=== PATIENT | male | born 1985 | race Caucasian/White ===

== ENCOUNTER 2017-03-22 10:44 | Emergency (ER) | payer OTHER ==
[~2017-03-22] VITALS: Ht 172.7 cm; Wt 71.5 kg
[2017-03-22 10:47] VITALS: TEMP 36.8; Ht 172.7 cm; Wt 71.5 kg
--- NOTE | 2017-03-22 12:17 | DIAGNOSTIC IMAGING REPORT ---
RIGHT ANKLE MIN 3 VIEWS ROUTINE CLINICAL HISTORY: Right ankle pain and swelling. COMPARISON: None FINDINGS: Alignment of the right ankle is anatomic. Talar dome is intact. There is no fracture or suspicious lesion. IMPRESSION: Unremarkable right ankle radiographs. Electronically signed by: Nick Gonzalez M.D. 03/22/2017 12:16 PM Dictated Date/Time: 03/22/2017 12:15 PM
--- NOTE | 2017-03-22 12:19 | DIAGNOSTIC IMAGING REPORT ---
RIGHT FOOT MIN 3 VIEWS ROUTINE CLINICAL HISTORY: Right foot and ankle pain and swelling. COMPARISON: None FINDINGS: Tarsometatarsal joints are intact. There is no acute fracture. There is minimal osteophytosis the right first metatarsophalangeal joint. There is no evidence for a stress fracture. IMPRESSION: 1. No acute fracture or dislocation of the right foot. 2. 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 Electronically signed by: Nick Gonzalez M.D. 03/22/2017 12:18 PM Dictated Date/Time: 03/22/2017 12:17 PM
[2017-03-22 12:50] VITALS: BP 134/84; PULSE 97; O2SAT 96
--- NOTE | 2017-03-22 20:39 | EMERGENCY ROOM VISIT NOTE ---
ED Visit Note First contact with patient: 11:00 Chief Complaint: Right foot and ankle pain. History of Present Illness: Mr. Moon is a 31-year-old white male who ambulates into the ED complaining of right medial ankle pain and right plantar foot pain. Patient reports his symptoms started approximately 3-4 days. Since that time his pain has been constant but has waxed and waned in intensity. 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 Currently he is complaining of pain over the anterior aspect of the right medial malleolus along the tendon sheath of the tibialis anterior muscle. He describes this pain as an achy sensation and rates his discomfort 4/10. His pain worsens with palpation and plantar flexion of the ankle. He has not identified any alleviating factors related to the pain. He is taking intermittent ibuprofen without relief of his discomfort. Associated with his pain he reports he is also having pain over the plantar fascia. He describes this as a burning type pain. He rates this discomfort 5/ 10. His pain is nonradiating. His pain worsens with flattening of the arches, ambulation and palpation of the fascia. He has not identified any alleviating factors related to the pain. He is used intermittent ibuprofen without relief of his discomfort. Associated with his ankle and foot pain he feels there is mild swelling in this area. He denies any lower leg pain, heel pain, Achilles tendon pain, lateral ankle pain, ankle/foot weakness/numbness/tingling. Additionally he denies any previous significant injuries or surgeries to the ankle or foot. Review of Systems: As noted above in history of present illness. Past Medical History: Patient denies. Current Medications: Patient denies. Allergies to Medications: Patient denies. Social History: Patient is currently employed; he feels safe in his home environment; he denies tobacco use. Physical Examination: Vital Signs: Date Time Temp Pulse Resp B/P (MAP) Pulse Ox O2 Delivery O2 Flow Rate FiO2 03/22/17 12:50 97 134/84 96 03/22/17 10:47 36.8 101 18 149/89 93 Room Air GENERAL: 31-year-old male in mild distress due to pain, nontoxic-appearing, afebrile and hemodynamically stable. NEUROLOGICAL: Awake, alert and oriented to person, place and time. Answering questions appropriately and following commands. Normal gait. Good hand eye coordination. No focal motor or sensory deficits. RIGHT LOWER LEG: No gross bony deformity. No tenderness throughout the lower leg. There is mild tenderness over the anterior aspect of the medial malleolus predominately over the tendinous structures. I do not appreciate any swelling or erythema in this area but the patient feels like it is swollen in this area. There is no bony deformity or crepitus. No ecchymosis. Full range of motion in plantar flexion and dorsiflexion of the ankle. No ligamentous laxity. There is also moderate tenderness over the plantar fascia without erythema or edema. Once again patient feels this area is swollen but I do not appreciate any swelling. There is no soft tissue injuries or foreign bodies embedded in this area. The area of tenderness is just anterior to the calcaneus and extends to the mid foot. When the arches flattened he has increasing pain. Throughout the rest of the foot the skin was warm and pink and capillary refill is brisk. Able to distinguish light sensations to all dermatomes of the foot. ED Course: Patient is assessed as noted above. Patient's medication list was reviewed. Patient was offered pain medication and refused. Right Ankle X-Rays: Were read by myself and the radiologist showing no acute fractures or dislocations. Right Foot X-Rays: Were read by myself and shows no acute fractures or dislocations. Radiologist notes minimal osteoarthritis in the first metatarsal phalangeal joint. Patient was placed in a postop shoe and on nonweightbearing crutches. Patient was educated about today's findings and instructed on his treatment plan ; he verbalizes understanding and agreement with this plan. Clinical Impression: Right foot plantar fasciitis. Possible tendinitis. Disposition: Patient discharged home in stable condition; prior to departure he was reassessed and subjectively reported that he was pain-free. Plan: Comfort measures were discussed with the patient including rest, ice, ibuprofen , acetaminophen, postop shoe and nonweightbearing crutches. Patient was encouraged to be reevaluated by a commercial litigation associate for definitive care and treatment. Patient was encouraged return ED for worsening/uncontrolled pain, uncontrolled swelling, foot redness, foot weakness/numbness/tingling or any new/concerning symptoms.
== END 2017-03-22 12:50 | disposition home or self-care (01) ==
LOC: C.EDB 10:46 → C.EDD 12:50
DX: M72.2 Plantar fascial fibromatosis (principal)

== ENCOUNTER 2017-04-30 11:24 | Emergency (ER) | payer OTHER ==
[~2017-04-30] VITALS: Ht 172.7 cm; Wt 73.1 kg
[2017-04-30 11:28] VITALS: Ht 172.7 cm; Wt 73.1 kg
--- NOTE | 2017-04-30 12:37 | DIAGNOSTIC IMAGING REPORT ---
RIGHT ANKLE MIN 3 VIEWS ROUTINE CLINICAL HISTORY: Right ankle pain and swelling. COMPARISON: Right ankle radiographs March 22, 2017. FINDINGS: Alignment of the right ankle is anatomic. Talar dome is intact. No fracture or suspicious lesion is present. There is mild ankle soft tissue swelling, greater laterally. IMPRESSION: 1. No osseous abnormality of the right ankle. 2. Right ankle soft tissue swelling. Electronically signed by: Nick Gonzalez M.D. 04/30/2017 12:36 PM Dictated Date/Time: 04/30/2017 12:32 PM
--- NOTE | 2017-04-30 12:40 | DIAGNOSTIC IMAGING REPORT ---
RIGHT FOOT MIN 3 VIEWS ROUTINE HISTORY: 31 years-old Male acute right foot pain and swelling. COMPARISON: Right foot radiographs 03/22/2017, right ankle radiographs of same day TECHNIQUE: 3 views of the right foot. FINDINGS: Minimal degenerative changes are again seen within the first metatarsal metatarsal joint. No acute fracture, dislocation or significant degenerative changes are otherwise seen. Bone mineralization is within normal limits. Soft tissues are unremarkable. No opaque foreign body. IMPRESSION: Mild degenerative changes of the first tarsal metatarsal joint without acute bony abnormality. The above report was generated using voice recognition software. It may contain grammatical, syntax or spelling errors. Electronically signed by: Marquise Coleman M.D. 04/30/2017 12:39 PM Dictated Date/Time: 04/30/2017 12:37 PM
--- NOTE | 2017-04-30 14:16 | DIAGNOSTIC IMAGING REPORT ---
BILATERAL LOWER EXTREMITY VENOUS DOPPLER HISTORY: Acute right foot and ankle swelling the calf cramping COMPARISON STUDY: None. FINDINGS: There is normal compressibility, flow, and augmentation within the right lower extremity deep venous system. Note is made of a centrally cystic structure with minimal internal septations involving the posterior medial knee measuring up to 3.9 cm suggesting Garcia's cyst. Additionally within the posterior medial upper calf proximally there is a complex partially cystic collection without internal vascularity, 3.1 x 0.9 x 1.9 cm. This may be connected to the Garcia's cyst. IMPRESSION: 1. No sonographic evidence of deep venous thrombosis within the right lower extremity. 2. 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 Correlate with clinical exam. Electronically signed by: Marquise Coleman M.D. 04/30/2017 2:14 PM Dictated Date/Time: 04/30/2017 2:11 PM
[2017-04-30] MEDS ORDERED: HYDR-5688 PO (14:43)
[2017-04-30] MEDS ORDERED: PRED20TA2 PO (14:43)
--- NOTE | 2017-04-30 14:55 | Pharmacy Progress Note ---
ED Pharmacist Progress Note Date of Service: Apr 30, 2017. Received call from outpatient pharmacy requesting clarification on prednisone prescription. Written as 3 tabs po daily x4 days, #15 However, #15 would indicate 5 day course Spoke with Elvin Bruno, who confirmed that course is to be 5 days. Provided verbal confirmation to the pharmacy.
[2017-04-30 15:13] VITALS: BP 148/68; PULSE 101; TEMP 36.8; O2SAT 100
--- NOTE | 2017-05-01 06:28 | EMERGENCY ROOM VISIT NOTE ---
ED Visit Note First contact with patient: 11:47 Chief Complaint: My right foot, ankle and calf are hurting. History of Present Illness: Mr. Moon is a 31-year-old white male who ambulates into the ED complaining of right lower leg pain. I did see this patient in mid March for similar symptoms. After x-rays and examination my clinical impression was plantar fasciitis and possible tendinitis. He was encouraged to follow-up with orthopedics and podiatry and has not done so. After his treatment of rest and [id number] medications he had mostly relief of symptoms and he feels these have returned since his increased workload has started. 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 Currently patient is complaining of pain over his right arch and pain and swelling over the lower surface of his foot extending into his ankle. He describes this as an achy sensation that becomes sharp with weightbearing and ambulation. At rest is pain is minimal and reports he rates his discomfort 2/ 10 and with weightbearing and ambulation increases to 10/10. He has been using ibuprofen without relief of his discomfort. Associated with his pain he reports he has noted mild swelling over the top of his foot and ankle which is also associated with some mild erythema and he reports this week he has been having cramping of the gastrocnemius muscle. He denies recent trauma, fevers, chills, other skin eruptions or skin color changes, decreased appetite, nausea, vomiting, chest pain, shortness of breath, palpitations, previous clots, claudication, cramping, recent surgery/inactivity/ extended travel, extremity weakness/numbness/tingling. Review of Systems: As noted above in history of present illness. 8 body systems were reviewed and found to be negative as noted above. Past Medical History: As previously noted. Current Medications: Patient denies. Allergies to Medications: Patient denies. Social History: Patient is currently employed; he lives alone and feels safe in his home environment; he admits to tobacco and alcohol use. Physical Examination: Vital Signs: Date Time Temp Pulse Resp B/P (MAP) Pulse Ox O2 Delivery O2 Flow Rate FiO2 04/30/17 15:13 36.8 101 20 148/68 100 04/30/17 15:12 101 20 148/68 100 Room Air 8/30/17 11:28 36.8 115 20 177/97 100 Room Air GENERAL: 31-year-old male in mild distress due to symptoms, nontoxic-appearing, afebrile and hemodynamically stable. NEUROLOGICAL: Awake, alert and oriented to person, place and time. Answering questions appropriately and following commands. Limped gait. Good hand eye coordination. No focal motor sensory deficits. SKIN: Warm, dry and pink. All her surface of the patient's ankle is mildly erythematous but not hot to the touch. The skin does not appear cellulitic and no lymphangitis HEENT: Atraumatic and normocephalic. Sclera white and conjunctiva pink. Airway patent. Speech normal. No lymphadenopathy. Trachea midline. No jugular venous distention. THORAX: Lungs sounds are clear to auscultation and equal bilaterally with symmetrical chest wall. No wheezing, rales or rhonchi. No crepitus, tenderness , subcutaneous air or deformities noted. HEART: Tachycardic rate and rhythm. No gallops, rubs or murmurs are appreciated. ABDOMEN: Flat, soft and nontender. Positive bowel sounds in all quadrants. No guarding, rigidity or organomegaly. EXTREMITIES: Moves all extremities well on command and with purpose. All distal neurovascular statuses are intact and equal bilaterally. RIGHT LOWER EXTREMITY: No gross bony deformity. No tenderness in the hip, thigh or knee. Mild tenderness over the proximal gastrocnemius muscle with slight fullness but no cords. Mild tenderness and erythema associated with swelling around the lateral medial ankle without bony deformity or crepitus. No laxity on testing. Full range of motion in plantar flexion, dorsiflexion, inversion and eversion. There is also mild swelling and erythema over the volar surface of the foot but not the plantar surface. Do not appreciate any bony deformity or crepitus. I was not able to elicit any tenderness over the volar aspect of the foot. On the plantar surface of the foot patient has tenderness in his arch specifically the medial longitudinal arch. There is no erythema or edema on the bottom of the foot. There is no bony crepitus or swelling. Throughout the foot the skin was warm and pink and capillary refill is brisk. He is able to distinguish light sensations through all dermatomes. ED Course: Patient is assessed as noted above. Patient's medication list was reviewed. Right Ankle X-Rays: Were read by myself and the radiologist and shows no fractures or dislocations. Mild ankle swelling was noted and radiologist reported it was greater on the lateral aspect of the foot. Right Foot X-Rays: Were read by myself and the radiologist showing no acute fractures or dislocations. Once again first MTP joint showed minimal degenerative changes consistent with his previous x-rays. 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 On reevaluation of the patient he reports this is the area where he has a cramping sensation. Ears no local erythema or edema. The tissues. Full but I had not appreciated of any fluctuance or induration. Patient was offered pain medication and refused. Patient was educated about today's findings and instructed on his treatment plan ; he verbalizes understanding and agreement with this plan. Clinical Impression: Right ankle and foot pain. Right lower leg cramping, Garcia cyst. Questionable plantar fasciitis or tendinitis. Decision-Making: Initially my differential diagnosis I considered fracture, dislocation, premature arthritis, gout, muscle strain, ligamentous injury, foreign body, DVT and other causes. Disposition: Patient discharged home in stable condition; prior to departure he was reassessed and subjectively reported he was feeling better. Plan: Patient was prescribed prednisone 60 mg once a day for 5 days, patient was placed on a sliding pain medication scale of ibuprofen, acetaminophen and [place] ; he was given appropriate narcotic precautions and his name was checked in the state database and no red flags were noted, ice, elevation, crutch use. Patient is encouraged to keep his upcoming appointment with podiatry next week for definitive care and treatment. Patient was encouraged return to the ED for worsening/uncontrolled pain, uncontrolled swelling, foot weakness/numbness/tingling.
== END 2017-04-30 15:14 | disposition home or self-care (01) ==
LOC: C.EDB 11:26 → C.EDD 15:14
DX: M25.571 Pain in right ankle and joints of right foot (principal); M79.671 Pain in right foot; M79.661 Pain in right lower leg; M71.21 Synovial cyst of popliteal space [Baker], right knee; F17.200 Nicotine dependence, unspecified, uncomplicated; R00.0 Tachycardia, unspecified